=== PATIENT | female | born 1965 | race Caucasian/White ===

== ENCOUNTER 2016-12-17 11:49 | Emergency (ER) | payer MEDICAID ==
[~2016-12-17] VITALS: Ht 160 cm; Wt 85.0 kg
[~2016-12-17 11:49] MED LIST: ALBU8.5H3 INH; AMLO5TAB4 PO; AZIT250T94 PO; BENA40TA41 PO; METF500T4 PO; PRA20 PO; PRED20TA PO
[2016-12-17 11:56] VITALS: Ht 160 cm; Wt 85.0 kg
--- NOTE | 2016-12-17 13:51 | RADRPT ---
PROCEDURE: Chest Radiograph. CLINICAL INDICATION: Cough TECHNIQUE: Single frontal chest radiograph. COMPARISON: Chest radiograph 07/08/2015 FINDINGS: Heart size is within normal limits. Atherosclerotic calcifications are present. No infiltrate or effusion is seen. The bones are intact. IMPRESSION: 1. No evidence of acute cardiopulmonary disease. 2. Atherosclerotic vascular disease. RPTAT: KK .Sukhjinder Arita MD, MD Date Time Electronically viewed and signed by .Sukhjinder Arita MD, MD on 12/17/2016 13:50 .B/
[2016-12-17] MEDS ORDERED: ACET500C5 PO (13:57)
[2016-12-17] MEDS ORDERED: BENZ100C70 PO (13:57)
[2016-12-17] MEDS ORDERED: CETI10CA PO (13:58)
--- NOTE | 2016-12-17 18:49 | ERD ---
ER Documentation Chief Complaint Date/Time DATE: 12/17/16 TIME: 18:45 Chief Complaint PRODUCTIVE COUGH X 3 DAYS HPI 51-year-old female with a history of diabetes and hypertension who presents to the ED with sore throat, cough and chills for 3 days. Tactile fevers at home. Denies shortness of breath or difficulty breathing. Denies headache or dizziness. Denies ear pain. Denies abdominal pain, nausea, vomiting or diarrhea. Denies leg pain or swelling. Denies recent travel or recent surgeries. ROS All systems reviewed and are negative except as per history of present illness. Medications Home Meds Active Scripts Cetirizine Hcl* (Zyrtec*) 10 Mg Capsule, 10 MG PO DAILY, #30 TAB.CHEW Prov:FRANC GODINEZ PA-C 12/17/16 Acetaminophen* (Tylophen*) 500 Mg Capsule, 1 CAP PO Q6H Y for PAIN AND OR ELEVATED TEMP, #20 CAP Prov:MARKRIFRANC LEONARDO PA-C 12/17/16 Benzonatate* (Tessalon Perle*) 100 Mg Capsule, 100 MG PO Q8H Y for COUGH for 14 Days, CAP Prov:FRANC GODINEZ PA-C 12/17/16 Albuterol Sulfate* (Proair HFA*) 8.5 Gm Hfa.aer.ad, 2 PUFF INH Q4 for COUGH for 7 Days, INH Prov:LORRAINE DAILY MD 07/08/15 Prednisone* (Prednisone*) 20 Mg Tab, 40 MG PO DAILY for 4 Days, TAB START 07/09 Prov:LORRAINE DAILY MD 07/08/15 Azithromycin* (Zithromax*) 250 Mg Tablet, 250 MG PO .NissaPACK DIRECTED, #6 TAB TAKE 500 MG (2 TABS) THE FIRST DAY THEN 250 MG (1 TAB) DAYS 2-5 Prov:LORRAINE DAILY MD 07/08/15 Reported Medications Pravastatin Sodium (Pravastatin Sodium) 20 Mg Tablet, 20 MG PO DAILY 07/08/11 Amlodipine Besylate* (Norvasc*) 5 Mg Tablet, 5 MG PO DAILY 07/08/11 Benazepril Hcl* (Benazepril Hcl*) 40 Mg Tablet, 40 MG PO DAILY 07/08/11 Metformin* (Glucophage*) 500 Mg Tab, 500 MG PO BID 07/08/11 Allergies Allergies: Coded Allergies: No Known Allergy (Verified , 10/25/12) PMhx/Soc History of Surgery: No (HTN. DM.HIGH CHOLESTEROL ) Anesthesia Reaction: No Hx Neurological Disorder: No Hx Respiratory Disorders: No Hx Cardiac Disorders: No Hx Psychiatric Problems: No Hx Miscellaneous Medical Probl: No Hx Alcohol Use: No Hx Substance Use: No Hx Tobacco Use: Yes Smoking Status: Current every day smoker Physical Exam Vitals Vital Signs Date Time Temp Pulse Resp B/P Pulse Ox O2 Delivery O2 Flow Rate FiO2 12/17/16 11:56 98.5 87 18 125/76 98 Physical Exam GENERAL: Well-developed, well-nourished female. Appears in no acute distress. HEAD: Normocephalic, atraumatic. EYES: Pupils are equally reactive bilaterally. EOMs grossly intact. No conjunctival erythema. ENT: Moist mucous membranes. No uvula deviation. No kissing tonsils. No exudates. NECK: Supple. No lymphadenopathy or thyromegaly. No meningismus. negative kernig. negative brudinski. LUNG: Clear to auscultation bilaterally. No rhonchi, wheezing, rales or coarse breath sounds. HEART: Regular rate and rhythm. No murmurs, rubs or gallops. Extremities: Equal pulses bilaterally. No peripheral clubbing, cyanosis or edema. No unilateral leg swelling. NEUROLOGIC: Alert and oriented. Moving all four extremities. 5/5 strength in all extremities. Normal speech. Steady gait. SKIN: Normal color. Warm and dry. No rashes or lesions. Capillary refill < 2 seconds Procedures/MDM ER COURSE: I kept the patient and/or family informed of laboratory and diagnostic imaging results throughout the emergency room course. EKG, MONITORS, & DIAGNOSTIC IMAGING: [place] [id number] Radiology Main Line: [phone] DIAGNOSTIC IMAGING REPORT Patient: BRANDI DASH : 1965 Age: 51 Sex: F MR #: [id number] DOS: 12/17/16 1325 Ordering MD: FRANC GODINEZ PA-C Location: [facility] Room/Bed: PROCEDURE: Chest Radiograph. CLINICAL INDICATION: Cough TECHNIQUE: Single frontal chest radiograph. COMPARISON: Chest radiograph 07/08/2015 FINDINGS: Heart size is within normal limits. Atherosclerotic calcifications are present. No infiltrate or effusion is seen. The bones are intact. IMPRESSION: 1. No evidence of acute cardiopulmonary disease. 2. Atherosclerotic vascular disease. RPTAT: KK .Sukhjinder Arita MD, MD Date Time Electronically viewed and signed by .Sukhjinder Arita MD, MD on 2016 13:50 .B/ CC: FRANC GODINEZ PA-C MEDICAL DECISION MAKING: This is a 51-year-old female who presents with cough, sore throat. Vital signs were reviewed. Patient is afebrile. Patient is not hypoxic. Patient is not toxic or ill-appearing. Temperature 98.5, pulse 87 with an O2 sat of 98. Patient likely has URI of viral etiology. Low suspicion for pneumonia, PE, pneumothorax, ACS, epiglottitis, obstruction, TB, pertussis, meningitis, sepsis. Low suspicion for peritonsillar abscess, strep pharyngitis, mononucleosis, dental abscess DISCHARGE: At this time, patient is stable for discharge and outpatient management with no new complaints during the ER course. Patient was sent home with Zyrtec, Tylenol and Tessalon Perles.. Patient will be discharged home with instructions to recheck for new or worsening symptoms such as fever, nausea, weakness, LOC and to follow up with primary care in the next 1-2 days. Patient was advised to return to the ER for any new or worsening symptoms. Plan was discussed and patient and/or family understands and agrees. Home instructions were given. Departure Diagnosis: Primary Impression: Viral URI Condition: Stable Patient Instructions: Uri, Viral, No Abx (Adult) Additional Instructions: Call your primary care doctor TOMORROW for an appointment during the next 1-2 days.See the doctor sooner or return here if your condition worsens before your appointment time. FRANC GODINEZ PA-C Dec 17, 2016 18:49
== END 2016-12-17 14:18 | disposition home or self-care (01) ==
LOC: FTE 11:49
DX: J06.9 Acute upper respiratory infection, unspecified (principal); F17.210 Nicotine dependence, cigarettes, uncomplicated; E11.9 Type 2 diabetes mellitus without complications; I10 Essential (primary) hypertension; Z79.84 Long term (current) use of oral hypoglycemic drugs
CPT/HCPCS: 71010

== ENCOUNTER 2017-06-03 15:51 | Emergency (ER) | payer MEDICAID ==
[~2017-06-03] VITALS: Ht 162.6 cm; Wt 83.0 kg
[~2017-06-03 15:51] MED LIST changes: +ACET500C5 PO; +BENZ100C70 PO; +CETI10CA PO; -PRA20 PO; +PRAV20TA2 PO
[2017-06-03 15:54] VITALS: Ht 162.6 cm; Wt 83.0 kg
--- NOTE | 2017-06-03 17:05 | ERA ---
ER Documentation Chief Complaint Date/Time DATE: 06/03/17 TIME: 17:02 Chief Complaint Dizziness and head pain x 1 day HPI This is a 52-year-old female with a history of type 2 diabetes mellitus and hypertension that is controlled with metoprolol, losartan, metformin, glyburide 2 per day, benazepril. Chief complaint is dizziness. Patient states that his dizziness is worse when she moves. Patient has been put on increased glyburide to twice daily 1 month ago. States that her blood glucose is regularly checked and well controlled in the low 100s and was and said range earlier today. Patient denies any other medical conditions. Patient denies any foreign travel. Vaccination status up-to-date. Denies any cough, nausea, vomiting, constipation, diarrhea, recent illness, fever, chills. Patient has no other complaints and describes no other associated manifestations. Nursing notes have been reviewed and are inconsistent with the history given; patient denies headache. ROS All systems reviewed and are negative except as per history of present illness. Medications Home Meds Active Scripts Cetirizine Hcl* (Zyrtec*) 10 Mg Capsule, 10 MG PO DAILY, #30 TAB.CHEW Prov:RFANC GODINEZ PA-C 12/17/16 Acetaminophen* (Tylophen*) 500 Mg Capsule, 1 CAP PO Q6H Y for PAIN AND OR ELEVATED TEMP, #20 CAP Prov:FRANC GODINEZ-C 12/17/16 Benzonatate* (Tessalon Perle*) 100 Mg Capsule, 100 MG PO Q8H Y for COUGH for 14 Days, CAP Prov:FRANC GODINEZ PA-C 12/17/16 Albuterol Sulfate* (Proair HFA*) 8.5 Gm Hfa.aer.ad, 2 PUFF INH Q4 for COUGH for 7 Days, INH Prov:LORRAINE DAILY MD 07/08/15 Prednisone* (Prednisone*) 20 Mg Tab, 40 MG PO DAILY for 4 Days, TAB START 07/09 Prov:LORRAINE DAILY MD 07/08/15 Azithromycin* (Zithromax*) 250 Mg Tablet, 250 MG PO .ZPACK DIRECTED, #6 TAB TAKE 500 MG (2 TABS) THE FIRST DAY THEN 250 MG (1 TAB) DAYS 2-5 Prov:LORRAINE DAILY MD 07/08/15 Reported Medications Pravastatin Sodium (Pravastatin Sodium) 20 Mg Tablet, 20 MG PO DAILY 07/08/11 Amlodipine Besylate* (Norvasc*) 5 Mg Tablet, 5 MG PO DAILY 07/08/11 Benazepril Hcl* (Benazepril Hcl*) 40 Mg Tablet, 40 MG PO DAILY 07/08/11 Metformin* (Glucophage*) 500 Mg Tab, 500 MG PO BID 07/08/11 Allergies Allergies: Coded Allergies: No Known Allergy (Verified , 06/03/17) PMhx/Soc History of Surgery: No (HTN. DM.HIGH CHOLESTEROL ) Anesthesia Reaction: No Hx Neurological Disorder: No Hx Respiratory Disorders: No Hx Cardiac Disorders: No Hx Psychiatric Problems: No Hx Miscellaneous Medical Probl: No Hx Alcohol Use: No Hx Substance Use: No Hx Tobacco Use: Yes Physical Exam Vitals Vital Signs Date Time Temp Pulse Resp B/P Pulse Ox O2 Delivery O2 Flow Rate FiO2 06/03/17 15:54 98.3 74 19 167/88 97 Physical Exam Const: Overweight 52-year-old female. No acute distress. Head: Normocephalic, Atraumatic. Eyes: Non-injected; No discharge or foreign body. EOMI and MYRNA bilaterally. Ears: Normal External Ears, EACs clear, TM normal bilaterally without erythema. Nose: Normal external nose; no discharge, septal deviation, or sinus tenderness. Oral: No oral edema visualized. Mucous membranes moist and pink. Neck: No cervical lymphadenopathy, masses or goiter palpated. Trachea midline. Supple ~ No meningismus. Pulm: Good air movement in upper and lower respiratory tracts. No dyspnea, stridor, tripoding or drooling. Clear to auscultation bilaterally. Cardio: Regular rate and rhythm; No murmurs, gallops or rubs auscultated. No JVD grossly observed. Radial and posterior tibial pulses 2+ bilaterally. No cyanosis. Capillary refill less than 2 seconds. Abd: Soft, non tender, non distended. No guarding, masses. Normal bowel sounds. No McBurney's point tenderness. MS: Normal motor strength, normal tone with gross examination. Skin: No petechiae or rashes. No ulcer, induration, jaundice. Good turgor. Back: No midline, flank or CVA tenderness. Ext: No edema or palpable cord. Normal movement of all extremities grossly observed. Neur: Awake, alert and oriented x3. Neurovascularly intact bilaterally. Psych: Normal Mood and Affect. Procedures/MDM This is a 52-year-old female with history of type 2 diabetes mellitus and hypertension with a chief complaint of dizziness as described in history and physical examination. Patient shows no signs of dehydration. Maneuvers for inner ear pathology was unremarkable. Vitals are found in the right middle lobe on physical examination the chest x-ray was taken, read by the radiologist and given the following impression: IMPRESSION: No acute cardiopulmonary disease. Patient also has received an EKG. I directed the EKG as normal rate and rhythm, no ST wave changes, normal axis, low voltage with no acute T-wave abnormalities. My attending Dr. Jones has read the EKG as unremarkable. At this time I very low suspicion for uncontrolled blood glucose, acute coronary syndrome, CHF exacerbation, pulmonary embolism, pneumonia, tumor, or other intracranial pathologies. I cannot at this time rule out inner ear disorders thus patient will be given meclizine with discharge. Departure Diagnosis: Primary Impression: Dizziness Condition: Stable Additional Instructions: Follow up with your PCP within the next 1-3 days for a more thorough evaluation and a possible referral to a specialist. Return the the emergency department immediately if symptoms worsen or change. If you have any questions regarding medications, ask your pharmacist or us before you leave. If any adverse reactions occur while taking your medications, discontinue the treatment and return to the emergency department immediately. Take your medications as directed, and complete the entire course of treatment. AMEENA CASTANON PA-C Jun 03, 2017 17:05
--- NOTE | 2017-06-03 18:13 | RADRPT ---
PROCEDURE: Chest x-ray CLINICAL INDICATION: Abnormal breath sounds TECHNIQUE: Chest 2 views COMPARISON: 12/17/2016 FINDINGS: The heart is normal in size. The pulmonary vessels are normal in caliber. The lungs are clear. Th e costophrenic angles are sharp. The visualized bony thorax is unremarkable. IMPRESSION: No acute cardiopulmonary disease. RPTAT: HH .Mitchell Tinsley MD, Date Time Electronically viewed and signed by .Mitchell Tinsley MD, MD on 06/03/2017 18:13 .W/
[2017-06-03] MEDS ORDERED: MECL12.574 PO (18:21)
== END 2017-06-03 18:35 | disposition home or self-care (01) ==
LOC: FTE 15:51
DX: R42 Dizziness and giddiness (principal); E11.9 Type 2 diabetes mellitus without complications; I10 Essential (primary) hypertension; Z79.84 Long term (current) use of oral hypoglycemic drugs
CPT/HCPCS: 71020; 93005; Z7502

== ENCOUNTER 2017-10-07 08:00 | Emergency (ER) | payer MEDICAID ==
[~2017-10-07] VITALS: Ht 160 cm; Wt 80.0 kg
[~2017-10-07 08:00] MED LIST changes: +MECL12.574 PO
[2017-10-07 08:08] VITALS: Ht 160 cm; Wt 80.0 kg
[2017-10-07] MEDS ORDERED: IBUPROFEN 600 MG TAB PO ONE (08:30)
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
[2017-10-07] MEDS ORDERED: BACL10TA PO (09:20)
[2017-10-07] MEDS ORDERED: IBUP-1542 PO (09:20)
[2017-10-07] MEDS ORDERED: HYDR-906 PO (09:20)
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
== END 2017-10-07 10:04 | disposition home or self-care (01) ==
LOC: FTE 08:00
DX: M62.830 Muscle spasm of back (principal); I10 Essential (primary) hypertension; E11.9 Type 2 diabetes mellitus without complications; Z79.84 Long term (current) use of oral hypoglycemic drugs
CPT/HCPCS: 72040; 72100; Z7502; Z7610

== ENCOUNTER 2019-09-13 09:55 | Emergency (ER) | payer MEDICAID ==
[~2019-09-13] VITALS: Ht 165.1 cm; Wt 91.3 kg
[~2019-09-13 09:55] MED LIST changes: -ALBU8.5H3 INH; +ALBU8.5H8 INH; +AZIT250T PO; -AZIT250T94 PO; +BACL10TA PO; -BENA40TA41 PO; +BENA40TA56 PO; +BENZ-6 PO; -BENZ100C70 PO; +CARSR60 PO; +DILT120C77 PO; +GLIM2TAB47 PO; +HYDR-4011 PO; +IBUP-1542 PO; +METF-849 PO; -METF500T4 PO; +METO-319 PO; +METO-335 PO; +NAPR-985 PO
[2019-09-13 09:58] VITALS: Ht 165.1 cm; Wt 91.3 kg
[2019-09-13] MEDS ORDERED: DILTIAZEM (SR) 90 MG CAP PO ONE (10:30)
[2019-09-13] MEDS ORDERED: POTASSIUM CHLORIDE (SR) 20 MEQ TAB PO STA (12:49)
[2019-09-13 13:39] VITALS: BP 132/88; PULSE 73; RESP 20
== END 2019-09-13 14:05 | disposition home or self-care (01) ==
LOC: E/R 09:55
DX: I47.1 Supraventricular tachycardia (principal); I10 Essential (primary) hypertension; E11.9 Type 2 diabetes mellitus without complications; Z79.84 Long term (current) use of oral hypoglycemic drugs
CPT/HCPCS: 36415; 71045; 80048; 84484; 85025; 93005; Z7502; Z7610